=== PATIENT | female | born 1995 | race Caucasian/White ===

== ENCOUNTER 2018-02-11 18:59 | Observation (INO) | payer OTHER ==
[~2018-02-11] VITALS: Ht 157.5 cm; Wt 69.4 kg
[2018-02-11] MEDS ORDERED: PREN1TAB80 PO (20:09)
[2018-02-11 20:13] VITALS: BP 118/65
== END 2018-02-11 21:20 | disposition home or self-care (01) ==
LOC: 4S 18:59
PROVIDERS: ADMIT Obstetrics & Gynecology; ATTEND Obstetrics & Gynecology
DX: O62.9 Abnormality of forces of labor, unspecified (principal); Z3A.38 38 weeks gestation of pregnancy

== ENCOUNTER 2018-02-14 15:07 | Inpatient (IN) | payer OTHER ==
[~2018-02-14 15:07] MED LIST: PREN1TAB80 PO
[2018-02-14 15:45] VITALS: BP 123/67
[2018-02-14] MEDS ORDERED: METOCLOPRAMIDE HCL 5 MG/ML 2 ML VIAL IVP PRN (16:00)
[2018-02-14] MEDS ORDERED: CITRIC ACID/SODIUM CITRATE 30 ML SOLUTION UDCUP PO PRN (16:00)
[2018-02-14] MEDS ORDERED: RINGERS SOLUTION,LACTATED 1,000 ML IV PRN (16:00)
[2018-02-14] MEDS ORDERED: OXYTOCIN 30 UNITS/LACT RINGERS 500 ML IV ONE (16:00)
[2018-02-14] MEDS ORDERED: FentaNYL CITRATE-PF 100 MCG/2 ML VIAL IVP PRN (16:00)
[2018-02-14] MEDS ORDERED: LIDOCAINE/PF 1% 30 ML VIAL INJ PRN (16:00)
[2018-02-14] MEDS ORDERED: OXYTOCIN 30 UNITS/LACT RINGERS 500 ML IV PRN (16:00)
[2018-02-14] MEDS ORDERED: METHYLERGONOVINE MALEATE 0.2 MG/ML VIAL IM PRN (16:00)
[2018-02-14] MEDS: RINGERS SOLUTION,LACTATED 1,000 ML IV SCH ×3 (16:40→20:04)
[2018-02-14 18:02] LABS: BASOPHILS % (AUTO) 0.2 % (0.0-2.0); EOSINOPHILS % (AUTO) 0.7 % (1.0-6.0); HEMATOCRIT 35.9 % (36-46); HEMOGLOBIN 12.2 g/dL (12.0-16.0); LYMPHOCYTES # (AUTO) 1.7 K/uL (1.0-4.8); LYMPHOCYTES % (AUTO) 14.9 % (22.0-44.0); MEAN CORPUSCULAR HEMOGLOBIN 32.8 pg (26.0-34.0); MEAN CORPUSCULAR HGB CONC 33.9 G/dL (31.0-37.0); MEAN CORPUSCULAR VOLUME 97 fL (80-100); MONOCYTES % (AUTO) 8.6 % (2.0-9.0); NEUTROPHILS # (AUTO) 8.5 K/uL (1.8-7.7); NEUTROPHILS % (AUTO) 75.6 % (40.0-70.0); PLATELET COUNT (AUTO)-OB 179 K/uL (150-450); RED BLOOD CELL COUNT(AUTO) 3.71 MIL/uL (4.00-5.20); RED CELL DISTRIBUTION WIDTH 13.8 % (11.5-14.5)
[2018-02-14] MEDS ORDERED: ROPIVACAINE HCL/PF 0.2% 100 ML ED ONE (19:33)
[2018-02-14] MEDS ORDERED: OXYGEN THERAPY IH SCH (20:00)
[2018-02-14] MEDS ORDERED: BUPIVACAINE HCL/PF 0.5% 10 ML VIAL ONE (21:35)
[2018-02-14] MEDS ORDERED: LIDOCAINE/PF 2% 5 ML VIAL ONE (21:35)
[2018-02-15] MEDS ORDERED: OXYTOCIN 30 UNITS/LACT RINGERS 500 ML IV ONE (01:51)
[2018-02-15] MEDS ORDERED: LIDOCAINE/PF 1% 30 ML VIAL INJ PRN (02:00)
[2018-02-15] MEDS ORDERED: MAGNESIUM HYDROXIDE SUSPENSION 30 ML UDCUP PO PRN (02:00)
[2018-02-15] MEDS ORDERED: OxyCODONE HCL/ACETAMINOPHEN 5-325 MG TABLET PO PRN ×2 (02:00)
[2018-02-15] MEDS ORDERED: BENZOCAINE 20%/MENTHOL 56 GM SPRAY CANISTER TP PRN (02:00)
[2018-02-15] MEDS ORDERED: LANOLIN 7 GM OINTMENT TP PRN (02:00)
[2018-02-15] MEDS: IBUPROFEN 800 MG TABLET PO PRN ×3 (02:21→20:22)
[2018-02-15] MEDS: GLYCERIN/WITCH HAZEL LEAF 40 PADS JAR TP PRN ×2 (02:21→19:07)
[2018-02-16] MEDS: IBUPROFEN 800 MG TABLET PO PRN (04:32)
[2018-02-16] MEDS ORDERED: IBUP-2070 PO (10:39)
== END 2018-02-16 11:00 | disposition home or self-care (01) | DRG 807 ==
LOC: OBSVTOIN 15:07 → 4S 15:07
PROVIDERS: ADMIT Obstetrics & Gynecology; ATTEND Obstetrics & Gynecology
PROC: 10E0XZZ Delivery of Products of Conception, External Approach (ICD-10-PCS; principal; 2018-02-14)
PROC: 0KQM0ZZ Repair Perineum Muscle, Open Approach (ICD-10-PCS; 2018-02-14)
PROC: 3E0R3BZ Introduction of Anesthetic Agent into Spinal Canal, Percutaneous Approach (ICD-10-PCS; 2018-02-14)
PROC: 00HU33Z Insertion of Infusion Device into Spinal Canal, Percutaneous Approach (ICD-10-PCS; 2018-02-14)
PROC: 3E02340 Introduction of Influenza Vaccine into Muscle, Percutaneous Approach (ICD-10-PCS; 2018-02-16)
DX: O70.1 Second degree perineal laceration during delivery (principal); Z37.0 Single live birth; Z3A.39 39 weeks gestation of pregnancy; Z23 Encounter for immunization
CPT/HCPCS: 86850; 86900; 86901; 90686; J2590; J2795; J3490; J7120